=== PATIENT | female | born 1950 | race Caucasian/White ===

== ENCOUNTER 2017-02-19 22:04 | Emergency (ER) | payer OTHER ==
[~2017-02-19] VITALS: Ht 144.8 cm; Wt 50.8 kg
[2017-02-19] MEDS ORDERED: ALPR0.5T3 (22:24)
[2017-02-19] MEDS ORDERED: ALBU17IN (22:24)
[2017-02-19] MEDS ORDERED: SPIRONO/HCTZ (22:24)
[2017-02-19] MEDS ORDERED: VENL150C43 (22:24)
[2017-02-19] MEDS ORDERED: ADVAIR (22:24)
[2017-02-19] MEDS ORDERED: DOXY100C37 (22:24)
[2017-02-19] MEDS ORDERED: ASPIRIN 325 MG TAB PO ONE (22:30)
[2017-02-19 22:39] LABS: ABG BASE EXCESS -1.9 (-2.0-2.0); ABG HCO3 23.2 MEQ/L (22.0-26.0); ABG PARTIAL PRESSURE CO2 40.8 mmHg (35.0-45.0); ABG TOTAL CO2 24.5 MEQ/L (23.0-31.0); ABG pH (ARTERIAL) 7.373 UNITS (7.350-7.450)
[2017-02-19] MEDS ORDERED: FUROSEMIDE 100 MG/10 ML VIAL (J1940) IV ONE (22:45)
[2017-02-19 22:48] LABS: BASO # 0.1 K/mm3 (0.0-0.2); BASO % 0.4 % (0.0-1.0); EOS # 0.2 K/mm3 (0.0-0.50); EOS % 1.1 % (0.0-3.0); LARGE UNSTAINED CELL # 0.1 K/mm3 (0.0-0.4); LARGE UNSTAINED CELL % 0.8 % (0.0-4.0); LYMPH # 2.3 K/mm3 (1.5-4.5); LYMPH % 14.9 % (24.0-44.0); MEAN CORPUSCULAR HEMOGLOBIN 29.1 pg (27.0-33.0); MEAN CORPUSCULAR HGB CONC 32.6 g/dl (32.0-36.5); MEAN CORPUSCULAR VOLUME 89.4 fl (80.0-96.0); MONO # 0.7 K/mm3 (0.0-0.8); MONO % 4.4 % (0.0-5.0); NEUTROPHILS % 78.3 % (36.0-66.0); PLATELET COUNT, AUTOMATED 215 k/mm3 (150-450); RED CELL DISTRIBUTION WIDTH 14.4 % (11.5-14.5); WHITE BLOOD COUNT 15.3 K/mm3 (4.0-10.0)
[2017-02-19] MEDS ORDERED: ACETAMINOPHEN TAB 650MG DOSE (2X325MG) PO ONE ×2 (23:00)
[2017-02-19 23:30] LABS: INR 0.92
[2017-02-19 23:46] LABS: ANION GAP 9 MEQ/L (8-16); BLOOD UREA NITROGEN 8 MG/DL (7-18); CALCIUM LEVEL 8.4 MG/DL (8.8-10.2); CARBON DIOXIDE LEVEL 29 MEQ/L (21-32); CHLORIDE LEVEL 92 MEQ/L (98-107); CREATININE FOR GFR 0.92 MG/DL (0.55-1.02); GLOMERULAR FILTRATION RATE > 60.0 (>45); GLUCOSE, FASTING 133 MG/DL (80-110); POTASSIUM SERUM 4.2 MEQ/L (3.5-5.1); SODIUM LEVEL 130 MEQ/L (136-145)
[2017-02-19] MEDS ORDERED: HEPARIN DRIP 25,000 UNITS in APPROPRIATE DILUENT 1 EA IV SCH ×2 (23:51→23:57)
[2017-02-19] MEDS ORDERED: HEPARIN SOD (PORCINE) 5000 UNITS/ML VIAL IV STA (23:51)
[2017-02-20] MEDS ORDERED: HEPARIN SOD (PORCINE) 5000 UNITS/ML VIAL IV PRN
[2017-02-20 01:30] VITALS: BP 87/55
--- NOTE | 2017-02-20 08:29 | REP ---
REASON: Dyspnea. COMPARISON: Two-view examination of 11/27/2016. The technique utilized in obtaining the radiograph has magnified the cardiac silhouette and accentuated the interstitial markings. Jordyn B lines are present. There is a diffuse increase in the interstitial markings throughout the lung rico with pulmonary vascular redistribution and the haziness throughout the pulmonary vascularity. There are no patchy opacities or pleural effusions. There is no change in the osseous structures. IMPRESSION: Pulmonary edema. Signed by Seng Richmond DO 02/20/2017 08:49 A
--- NOTE | 2017-02-21 09:10 | ECGEPIP ---
Stationary ECG Study [facility] - ED Test Date: 2017-02-19 Pat Name: MARY AWAD Department: Room: - Gender: F Area Coordinator: tk : [id number] Requested By: SHILPA CONTRERAS Order Number: [id number] Reading MD: Camila Rosa Measurements Intervals [place] Rate: 127 P: 73 OK: 100 QRS: 15 QRSD: 89 T: 93 QT: 255 QTc: 371 Interpretive Statements SINUS TACHYCARDIA WITH SHORT OK INTERVAL MARKED ST DEPRESSION, CONSIDER SUBENDOCARDIAL INJURY NO PRIOR CLINICALLY CORRELATE Electronically Signed On 02-21-2017 9:10:15 EDT by Camila Rosa
== END 2017-02-20 01:33 | disposition short-term general hospital (02) ==
LOC: M ED 22:17
DX: I21.4 Non-ST elevation (NSTEMI) myocardial infarction (principal); I50.1 Left ventricular failure, unspecified; I10 Essential (primary) hypertension; J44.9 Chronic obstructive pulmonary disease, unspecified; Z88.0 Allergy status to penicillin; Z79.899 Other long term (current) drug therapy; Z79.2 Long term (current) use of antibiotics
CPT/HCPCS: 36600; 71010; 80048; 82550; 82553; 82803; 83605; 83880; 84484; 85025; 85610; 85730; 87040; 87804; 93005; 94660; 96374; 96375; 99285; J1940